=== PATIENT | male | born 1965 | race Two or more races ===

== ENCOUNTER 2024-08-29 13:34 | Inpatient (IN) | payer MEDICAID ==
[~2024-08-29] VITALS: Ht 188 cm; Wt 125.5 kg
[2024-08-29 14:34] LABS: BASOPHILS % (AUTO) 0.3 % (0.0-2.0); EOSINOPHILS % (AUTO) 1.6 % (1.0-6.0); HEMATOCRIT 40.7 % (41-53); LYMPHOCYTES # (AUTO) 1.4 K/uL (1.0-4.8); LYMPHOCYTES % (AUTO) 15.2 % (22.0-44.0); MEAN CORPUSCULAR HEMOGLOBIN 28.3 pg (26.0-34.0); MEAN CORPUSCULAR HGB CONC 34.4 G/dL (31.0-37.0); MEAN CORPUSCULAR VOLUME 82 fL (80-100); MONOCYTES # (AUTO) 0.9 K/uL (0.1-1.0); MONOCYTES % (AUTO) 9.8 % (2.0-9.0); NEUTROPHILS # (AUTO) 6.8 K/uL (1.8-7.7); NEUTROPHILS % (AUTO) 73.1 % (40.0-70.0); PLATELET COUNT (AUTO) 281 K/uL (150-450); RED BLOOD CELL COUNT(AUTO) 4.96 MIL/uL (4.50-5.90); RED CELL DISTRIBUTION WIDTH 12.7 % (11.5-14.5); WHITE BLOOD COUNT (AUTO) 9.3 K/uL (4.5-11.0)
[2024-08-29 14:39] LABS: ANION GAP 7 mmol/L (8-16); CALCIUM, TOTAL 8.8 mg/dL (8.8-10.5); CARBON DIOXIDE 29 mmol/L (22-29); CHLORIDE 100 mmol/L (98-107); CREATININE 0.96 mg/dL (0.60-1.30); GLOMERULAR FILTR. RATE CALC > 60 mL/min (>60); GLUCOSE,RANDOM 143 mg/dL (70-110); POTASSIUM 3.8 mmol/L (3.5-5.1); SODIUM SERUM 136 mmol/L (136-145); UREA NITROGEN, BLOOD 18 mg/dL (7-18)
[2024-08-29] MEDS ORDERED: 0.9% SODIUM CHLORIDE 10 ML SYRINGE IVP PRN (15:45)
[2024-08-29] MEDS: SODIUM CHLORIDE 0.9% 500 ML IV ONE (15:55)
[2024-08-29] MEDS: VANCOMYCIN HCL 1.5 GM in DEXTROSE 5%-WATER 250 ML IV ONE (16:12)
[2024-08-29 16:13] LABS: PROTHROMBIN TIME 80.2 SEC (9.4-11.6)
[2024-08-29 16:14] LABS: TROPONIN I-HIGH SENSITIVITY 8 ng/L (<76)
[2024-08-29 16:15] LABS: LACTIC ACID 1.1 mmol/L (0.4-2.0)
[2024-08-29 16:30] LABS: B-TYPE NATRIURETIC PEPTIDE 10 pg/mL (0-100)
[2024-08-29] MEDS ORDERED: MORPHINE SULFATE 2 MG/ML SYRINGE IVP PRN (16:30)
[2024-08-29] MEDS ORDERED: BISACODYL 10 MG RECTAL RECTAL SUPPOSITORY PR PRN (16:30)
[2024-08-29] MEDS ORDERED: ONDANSETRON HCL 4 MG/2 ML VIAL IVP PRN (16:30)
[2024-08-29] MEDS ORDERED: ZOLPIDEM TARTRATE 5 MG TABLET PO PRN (16:30)
[2024-08-29] MEDS ORDERED: HYDROCODONE/ACETAMINOPHEN 5-325 MG TABLET PO PRN (16:30)
[2024-08-29] MEDS ORDERED: MAGNESIUM HYDROXIDE SUSPENSION 30 ML UDCUP PO PRN (16:30)
[2024-08-29] MEDS ORDERED: DEXTROSE 50%-WATER 25 GM/50 ML SYRINGE IVP PRN (16:30)
[2024-08-29] MEDS ORDERED: ACETAMINOPHEN 325 MG TABLET PO PRN (16:30)
[2024-08-29] MEDS ORDERED: METO50 PO (16:43)
[2024-08-29] MEDS ORDERED: AMLO10TA55 PO (16:43)
[2024-08-29] MEDS ORDERED: METF-446 PO (16:43)
[2024-08-29] MEDS ORDERED: TAMS0.4C94 PO (16:43)
[2024-08-29] MEDS ORDERED: INSU3INS3 SQ (16:43)
[2024-08-29] MEDS ORDERED: LISI20TA24 PO (16:43)
[2024-08-29] MEDS ORDERED: ATOR40TA71 PO (16:43)
[2024-08-29] MEDS ORDERED: EMPA10TA3 PO (16:43)
[2024-08-29] MEDS: PIPERACILLIN/TAZO 3.375 GM/D5W 50 ML IV ONE (16:52)
[2024-08-29 19:03] LABS: PROTHROMBIN TIME 11.1 SEC (9.4-11.6)
[2024-08-29 19:04] LABS: ALANINE AMINOTRANSFERASE 23 U/L (12-78); ALBUMIN 3.4 g/dL (3.4-5.0); ALKALINE PHOSPHATASE 81 U/L (46-116); ANION GAP 10 mmol/L (8-16); ASPARTATE AMINOTRANSFERASE 19 U/L (15-37); BILIRUBIN,TOTAL 0.8 mg/dL (0.1-1.0); CARBON DIOXIDE 29 mmol/L (22-29); CHLORIDE 97 mmol/L (98-107); CREATININE 1.02 mg/dL (0.60-1.30); GLOMERULAR FILTR. RATE CALC > 60 mL/min (>60); GLUCOSE,RANDOM 170 mg/dL (70-110); POTASSIUM 3.9 mmol/L (3.5-5.1); SODIUM SERUM 136 mmol/L (136-145); TOTAL PROTEIN, SERUM 7.6 g/dL (6.4-8.2); UREA NITROGEN, BLOOD 17 mg/dL (7-18)
[2024-08-29] MEDS: DOCUSATE SODIUM 100 MG CAPSULE PO SCH (21:00)
[2024-08-29 21:39] VITALS: BP 141/90; PULSE 91; RESP 20; TEMP 97.9; O2SAT 98
[2024-08-29] MEDS: INSULIN LISPRO 100 UNITS/ML SQ PRN (22:19)
[2024-08-29] MEDS ORDERED: SODIUM CHLORIDE 0.9% 500 ML IV ONE (23:51)
[2024-08-29] MEDS: PIPERACILLIN/TAZO 3.375 GM/D5W 50 ML IV SCH (23:54)
[2024-08-30] MEDS ORDERED: HEPARIN SODIUM,PORCINE 5,000 UNITS/ML VIAL SQ SCH
[2024-08-30] MEDS: VANCOMYCIN 1GM/WATER(PEG/NADA) 200 ML IV SCH (00:51)
[2024-08-30 04:38] VITALS: BP 123/57; PULSE 88; RESP 18; TEMP 98.9; O2SAT 98
[2024-08-30 06:36] LABS: GLUCOMETER DEV NAME(LOC) 6S.1D; GLUCOSE,POINT OF CARE 255 MG/DL (70-110)
[2024-08-30 07:38] VITALS: BP 118/70; PULSE 84; RESP 18; TEMP 98.4; O2SAT 98
[2024-08-30 07:48] LABS: BASOPHILS % (AUTO) 0.4 % (0.0-2.0); HEMATOCRIT 40.9 % (41-53); HEMOGLOBIN 14.1 g/dL (13.5-17.5); LYMPHOCYTES # (AUTO) 1.2 K/uL (1.0-4.8); LYMPHOCYTES % (AUTO) 14.4 % (22.0-44.0); MEAN CORPUSCULAR HEMOGLOBIN 28.3 pg (26.0-34.0); MEAN CORPUSCULAR HGB CONC 34.6 G/dL (31.0-37.0); MEAN CORPUSCULAR VOLUME 82 fL (80-100); MONOCYTES # (AUTO) 0.7 K/uL (0.1-1.0); MONOCYTES % (AUTO) 8.2 % (2.0-9.0); NEUTROPHILS # (AUTO) 6.2 K/uL (1.8-7.7); PLATELET COUNT (AUTO) 299 K/uL (150-450); RED BLOOD CELL COUNT(AUTO) 4.99 MIL/uL (4.50-5.90); RED CELL DISTRIBUTION WIDTH 12.8 % (11.5-14.5); WHITE BLOOD COUNT (AUTO) 8.2 K/uL (4.5-11.0)
[2024-08-30 07:58] LABS: ANION GAP 9 mmol/L (8-16); CALCIUM, TOTAL 8.7 mg/dL (8.8-10.5); CARBON DIOXIDE 27 mmol/L (22-29); CHLORIDE 100 mmol/L (98-107); CREATININE 1.02 mg/dL (0.60-1.30); GLOMERULAR FILTR. RATE CALC > 60 mL/min (>60); GLUCOSE,RANDOM 150 mg/dL (70-110); POTASSIUM 3.9 mmol/L (3.5-5.1); SODIUM SERUM 136 mmol/L (136-145); UREA NITROGEN, BLOOD 17 mg/dL (7-18)
[2024-08-30] MEDS: EMPAGLIFLOZIN 10 MG TABLET PO SCH (09:00)
[2024-08-30] MEDS: AmLODIPine BESYLATE 10 MG TABLET PO SCH (11:58)
[2024-08-30] MEDS: PANTOPRAZOLE SODIUM 40 MG DR TABLET PO SCH (11:59)
[2024-08-30] MEDS: lisinopriL 20 MG TABLET PO SCH (12:00)
[2024-08-30] MEDS: METOPROLOL TARTRATE 50 MG TABLET PO SCH (12:00)
[2024-08-30 12:50] LABS: APPEARANCE,URINE CLEAR (CLEAR); BILIRUBIN,URINE NEGATIVE (NEGATIVE); COLOR,URINE LIGHT YELLOW (YELLOW); GLUCOSE, URINE (UA) >=1000 mg/dL (NEGATIVE); KETONES,URINE NEGATIVE (NEGATIVE); LEUKOCYTE ESTERASE ,URINE NEGATIVE (NEGATIVE); NITRATE,URINE NEGATIVE (NEGATIVE); OCCULT BLOOD,URINE NEGATIVE (NEGATIVE); PH,URINE 6.5 (5.0-8.0); PROTEIN,URINE NEGATIVE (NEGATIVE); SPECIFIC GRAVITIY, URINE 1.016 (1.003-1.030); UROBILINOGEN,URINE <=1.0 mg/dL (<=1.0)
[2024-08-30 12:54] LABS: BACTERIA,URINE None Seen /HPF (None Seen); RBC,URINE None Seen /HPF (0-2); WBC,URINE None Seen /HPF (0-5)
[2024-08-30] MEDS ORDERED: GADOTERATE MEGLUMINE 10 MMOL/20 ML VIAL IVP ONE (15:07)
[2024-08-30 17:26] VITALS: BP 121/62; PULSE 78; RESP 18; TEMP 98; O2SAT 99
[2024-08-30 17:31] LABS: GLUCOMETER DEV NAME(LOC) 6S.1D; GLUCOSE,POINT OF CARE 165 MG/DL (70-110)
[2024-08-30 19:20] VITALS: BP 125/73; PULSE 73; RESP 18; TEMP 98.2; O2SAT 99
[2024-08-31 04:10] VITALS: BP 122/68; PULSE 82; RESP 19; TEMP 97.7; O2SAT 97
[2024-08-31 05:56] LABS: GLUCOMETER DEV NAME(LOC) 6S.1D; GLUCOSE,POINT OF CARE 115 MG/DL (70-110)
[2024-08-31 07:06] LABS: BASOPHILS % (AUTO) 0.5 % (0.0-2.0); HEMATOCRIT 45.2 % (41-53); HEMOGLOBIN 15.3 g/dL (13.5-17.5); LYMPHOCYTES # (AUTO) 1.5 K/uL (1.0-4.8); LYMPHOCYTES % (AUTO) 17.8 % (22.0-44.0); MEAN CORPUSCULAR HEMOGLOBIN 27.9 pg (26.0-34.0); MEAN CORPUSCULAR HGB CONC 33.9 G/dL (31.0-37.0); MEAN CORPUSCULAR VOLUME 82 fL (80-100); MONOCYTES # (AUTO) 0.6 K/uL (0.1-1.0); MONOCYTES % (AUTO) 7.1 % (2.0-9.0); NEUTROPHILS % (AUTO) 72.6 % (40.0-70.0); PLATELET COUNT (AUTO) 329 K/uL (150-450); RED BLOOD CELL COUNT(AUTO) 5.49 MIL/uL (4.50-5.90); RED CELL DISTRIBUTION WIDTH 12.9 % (11.5-14.5); WHITE BLOOD COUNT (AUTO) 8.2 K/uL (4.5-11.0)
[2024-08-31 07:16] LABS: GLUCOMETER DEV NAME(LOC) 6S.2; GLUCOSE,POINT OF CARE 116 MG/DL (70-110)
[2024-08-31 07:22] LABS: ANION GAP 3 mmol/L (8-16); CALCIUM, TOTAL 9.2 mg/dL (8.8-10.5); CARBON DIOXIDE 29 mmol/L (22-29); CHLORIDE 100 mmol/L (98-107); CREATININE 1.12 mg/dL (0.60-1.30); GLOMERULAR FILTR. RATE CALC > 60 mL/min (>60); GLUCOSE,RANDOM 125 mg/dL (70-110); POTASSIUM 3.8 mmol/L (3.5-5.1); SODIUM SERUM 132 mmol/L (136-145); UREA NITROGEN, BLOOD 18 mg/dL (7-18)
[2024-08-31] MEDS ORDERED: SODIUM CHLORIDE 0.9% 1,000 ML ONE (08:39)
[2024-08-31] MEDS ORDERED: GADOTERATE MEGLUMINE 10 MMOL/20 ML VIAL IVP ONE (09:14)
[2024-08-31 15:11] VITALS: BP 118/63; PULSE 71; RESP 19; TEMP 98; O2SAT 99
[2024-08-31 17:36] LABS: GLUCOMETER DEV NAME(LOC) 6N.2B; GLUCOSE,POINT OF CARE 166 MG/DL (70-110)
[2024-08-31] MEDS ORDERED: PIPERACILLIN/TAZO 3.375 GM/D5W 50 ML IV SCH (19:15)
[2024-08-31] MEDS: PIPERACILLIN/TAZO 3.375 GM/D5W 50 ML IV SCH (20:10)
[2024-08-31 20:30] VITALS: BP 139/78; PULSE 77; RESP 20; TEMP 97.3; O2SAT 98
[2024-08-31 22:11] LABS: GLUCOMETER DEV NAME(LOC) 6N.2B; GLUCOSE,POINT OF CARE 209 MG/DL (70-110)
[2024-08-31] MEDS: VANCOMYCIN 1GM/WATER(PEG/NADA) 200 ML IV SCH (23:19)
[2024-09-01 04:47] VITALS: BP 143/90; PULSE 77; RESP 18; TEMP 98.2; O2SAT 95
[2024-09-01 06:20] LABS: GLUCOMETER DEV NAME(LOC) 5S.1D; GLUCOSE,POINT OF CARE 158 MG/DL (70-110)
[2024-09-01 06:43] LABS: BASOPHILS % (AUTO) 2.7 % (0.0-2.0); EOSINOPHILS % (AUTO) 2.6 % (1.0-6.0); HEMOGLOBIN 14.9 g/dL (13.5-17.5); LYMPHOCYTES # (AUTO) 1.2 K/uL (1.0-4.8); LYMPHOCYTES % (AUTO) 14.5 % (22.0-44.0); MEAN CORPUSCULAR HGB CONC 33.9 G/dL (31.0-37.0); MEAN CORPUSCULAR VOLUME 83 fL (80-100); MONOCYTES # (AUTO) 0.7 K/uL (0.1-1.0); MONOCYTES % (AUTO) 8.1 % (2.0-9.0); NEUTROPHILS # (AUTO) 5.8 K/uL (1.8-7.7); NEUTROPHILS % (AUTO) 72.1 % (40.0-70.0); PLATELET COUNT (AUTO) 340 K/uL (150-450); RED BLOOD CELL COUNT(AUTO) 5.31 MIL/uL (4.50-5.90); RED CELL DISTRIBUTION WIDTH 12.8 % (11.5-14.5); WHITE BLOOD COUNT (AUTO) 8.1 K/uL (4.5-11.0)
[2024-09-01 06:46] LABS: GLUCOMETER DEV NAME(LOC) 5S.1D; GLUCOSE,POINT OF CARE 139 MG/DL (70-110)
[2024-09-01 06:48] LABS: ANION GAP 10 mmol/L (8-16); CALCIUM, TOTAL 9.3 mg/dL (8.8-10.5); CARBON DIOXIDE 26 mmol/L (22-29); CHLORIDE 103 mmol/L (98-107); CREATININE 1.02 mg/dL (0.60-1.30); GLOMERULAR FILTR. RATE CALC > 60 mL/min (>60); GLUCOSE,RANDOM 143 mg/dL (70-110); POTASSIUM 3.9 mmol/L (3.5-5.1); SODIUM SERUM 139 mmol/L (136-145); UREA NITROGEN, BLOOD 25 mg/dL (7-18)
[2024-09-01 07:48] VITALS: BP 147/78; PULSE 72; RESP 18; TEMP 98.2; O2SAT 97
[2024-09-01 15:52] VITALS: BP 147/106; PULSE 79; RESP 18; TEMP 98.2; O2SAT 97
[2024-09-01 17:46] LABS: GLUCOMETER DEV NAME(LOC) 4E.2; GLUCOSE,POINT OF CARE 123 MG/DL (70-110)
[2024-09-01 20:04] VITALS: BP 141/87; PULSE 84; RESP 19; TEMP 98; O2SAT 98
[2024-09-02 04:45] VITALS: BP 140/80; PULSE 61; RESP 18; TEMP 97.9; O2SAT 98
[2024-09-02] MEDS ORDERED: PROPOFOL 1% ISO-OSM 1000 MG/100 ML BOTTLE ONE (04:51)
[2024-09-02] MEDS ORDERED: FentaNYL CITRATE PF 100 MCG/2 ML VIAL ONE (04:51)
[2024-09-02] MEDS ORDERED: MIDAZOLAM HCL 2 MG/2 ML VIAL ONE (04:51)
[2024-09-02 06:31] LABS: GLUCOMETER DEV NAME(LOC) 6N.1B; GLUCOSE,POINT OF CARE 219 MG/DL (70-110)
[2024-09-02 07:35] LABS: ANION GAP 10 mmol/L (8-16); CALCIUM, TOTAL 8.8 mg/dL (8.8-10.5); CARBON DIOXIDE 25 mmol/L (22-29); CHLORIDE 106 mmol/L (98-107); CREATININE 1.09 mg/dL (0.60-1.30); GLOMERULAR FILTR. RATE CALC > 60 mL/min (>60); GLUCOSE,RANDOM 142 mg/dL (70-110); POTASSIUM 3.9 mmol/L (3.5-5.1); SODIUM SERUM 141 mmol/L (136-145); UREA NITROGEN, BLOOD 26 mg/dL (7-18)
[2024-09-02] MEDS ORDERED: RINGERS SOLUTION,LACTATED 1,000 ML IV ONE (08:47)
[2024-09-02] MEDS: CHLORHEXIDINE GLUCONATE 2% TOWELETTE [2'S/6'S] TP ONE (09:48)
[2024-09-02] MEDS: ETHYL ALCOHOL 62% ANTISEPTIC NASAL SANITIZER 0.6 ML AMPUL NASAL ONE (10:00)
[2024-09-02 10:33] VITALS: BP 132/87; PULSE 63; RESP 20; TEMP 97.8; O2SAT 99
[2024-09-02] MEDS ORDERED: FentaNYL CITRATE PF 100 MCG/2 ML VIAL IVP PRN (11:15)
[2024-09-02] MEDS ORDERED: HYDROmorphone HCL 2 MG/ML SYRINGE IVP PRN (11:15)
[2024-09-02] MEDS ORDERED: MEPERIDINE-PF 25 MG/ML VIAL IVP PRN (11:15)
[2024-09-02] MEDS: RINGERS SOLUTION,LACTATED 1,000 ML IV ONE (11:38)
[2024-09-02] MEDS: LIDOCAINE/PF 2% 5 ML VIAL ONE (12:25)
[2024-09-02] MEDS: BUPIVACAINE HCL/PF 0.5% 30 ML VIAL ONE (12:25)
[2024-09-02 12:31] LABS: GLUCOMETER DEV NAME(LOC) SDS.; GLUCOSE,POINT OF CARE 112 MG/DL (70-110)
[2024-09-02] MEDS ORDERED: POVIDONE-IODINE 10% 15 ML SOLUTION UD ONE (12:31)
[2024-09-02 15:33] VITALS: BP 129/81; PULSE 65; RESP 18; TEMP 97.5; O2SAT 98
[2024-09-02 17:25] LABS: GLUCOMETER DEV NAME(LOC) 4E.2; GLUCOSE,POINT OF CARE 73 MG/DL (70-110)
[2024-09-02 17:26] LABS: GLUCOMETER DEV NAME(LOC) 4E.2; GLUCOSE,POINT OF CARE 215 MG/DL (70-110)
[2024-09-02 17:26] LABS: GLUCOMETER DEV NAME(LOC) 4E.2; GLUCOSE,POINT OF CARE 133 MG/DL (70-110)
[2024-09-02 20:52] VITALS: BP 138/81; PULSE 74; RESP 20; TEMP 97.9; O2SAT 98
[2024-09-02 22:51] LABS: GLUCOMETER DEV NAME(LOC) 5S.1D; GLUCOSE,POINT OF CARE 240 MG/DL (70-110)
[2024-09-03] MEDS ORDERED: SODIUM CHLORIDE 0.9% 250 ML IV ONE (01:07)
[2024-09-03 04:57] VITALS: BP 147/74; PULSE 63; RESP 20; TEMP 97.9; O2SAT 98
[2024-09-03 06:05] LABS: GLUCOMETER DEV NAME(LOC) 5S.1D; GLUCOSE,POINT OF CARE 164 MG/DL (70-110)
[2024-09-03 07:00] LABS: ANION GAP 10 mmol/L (8-16); CALCIUM, TOTAL 8.8 mg/dL (8.8-10.5); CARBON DIOXIDE 25 mmol/L (22-29); CHLORIDE 107 mmol/L (98-107); GLOMERULAR FILTR. RATE CALC > 60 mL/min (>60); GLUCOSE,RANDOM 150 mg/dL (70-110); POTASSIUM 3.7 mmol/L (3.5-5.1); SODIUM SERUM 142 mmol/L (136-145); UREA NITROGEN, BLOOD 24 mg/dL (7-18)
[2024-09-03 07:29] VITALS: BP 140/76; PULSE 68; RESP 20; TEMP 98.1; O2SAT 98
[2024-09-03] MEDS: OXYGEN THERAPY IH SCH (08:29)
[2024-09-03 11:40] LABS: GLUCOMETER DEV NAME(LOC) 4E.2; GLUCOSE,POINT OF CARE 183 MG/DL (70-110)
[2024-09-03 15:29] VITALS: BP 144/82; PULSE 64; RESP 18; TEMP 97.9; O2SAT 97
[2024-09-03 17:25] LABS: GLUCOMETER DEV NAME(LOC) 4E.2; GLUCOSE,POINT OF CARE 171 MG/DL (70-110)
[2024-09-03 20:08] VITALS: BP 145/84; PULSE 70; RESP 18; TEMP 98.1; O2SAT 96
[2024-09-04 03:46] LABS: GLUCOMETER DEV NAME(LOC) 5S.1D; GLUCOSE,POINT OF CARE 172 MG/DL (70-110)
[2024-09-04 05:15] VITALS: BP 147/84; PULSE 58; RESP 20; TEMP 97.9; O2SAT 95
[2024-09-04 06:55] LABS: GLUCOMETER DEV NAME(LOC) 5S.1D; GLUCOSE,POINT OF CARE 144 MG/DL (70-110)
[2024-09-04 07:11] LABS: ANION GAP 9 mmol/L (8-16); CALCIUM, TOTAL 8.9 mg/dL (8.8-10.5); CARBON DIOXIDE 26 mmol/L (22-29); CHLORIDE 107 mmol/L (98-107); CREATININE 1.08 mg/dL (0.60-1.30); GLOMERULAR FILTR. RATE CALC > 60 mL/min (>60); GLUCOSE,RANDOM 140 mg/dL (70-110); SODIUM SERUM 142 mmol/L (136-145); UREA NITROGEN, BLOOD 25 mg/dL (7-18)
[2024-09-04 08:08] VITALS: BP 147/92; PULSE 72; RESP 20; TEMP 97.7; O2SAT 99
[2024-09-04 16:24] VITALS: BP 147/75; PULSE 61; RESP 20; TEMP 98.1; O2SAT 99
[2024-09-04 17:00] LABS: GLUCOMETER DEV NAME(LOC) 6N.1B; GLUCOSE,POINT OF CARE 153 MG/DL (70-110)
[2024-09-04 19:21] LABS: GLUCOMETER DEV NAME(LOC) 5S.1D; GLUCOSE,POINT OF CARE 164 MG/DL (70-110)
[2024-09-04 19:27] VITALS: BP 127/82; PULSE 69; RESP 18; TEMP 97.9; O2SAT 97
[2024-09-04] MEDS: VANCOMYCIN HCL 1.25 GM in DEXTROSE 5%-WATER 250 ML IV SCH (20:37)
[2024-09-04 22:36] LABS: GLUCOMETER DEV NAME(LOC) 5S.1D; GLUCOSE,POINT OF CARE 162 MG/DL (70-110)
[2024-09-05 04:53] VITALS: BP 118/81; PULSE 63; RESP 18; TEMP 97.7; O2SAT 98
[2024-09-05 08:00] VITALS: BP 142/84; PULSE 76; RESP 19; TEMP 98; O2SAT 98
[2024-09-05 08:04] LABS: ANION GAP 10 mmol/L (8-16); CALCIUM, TOTAL 9.6 mg/dL (8.8-10.5); CARBON DIOXIDE 27 mmol/L (22-29); CHLORIDE 102 mmol/L (98-107); CREATININE 1.09 mg/dL (0.60-1.30); GLOMERULAR FILTR. RATE CALC > 60 mL/min (>60); GLUCOSE,RANDOM 176 mg/dL (70-110); POTASSIUM 4.2 mmol/L (3.5-5.1); SODIUM SERUM 139 mmol/L (136-145); UREA NITROGEN, BLOOD 25 mg/dL (7-18)
[2024-09-05 12:05] LABS: GLUCOMETER DEV NAME(LOC) 4E.2; GLUCOSE,POINT OF CARE 168 MG/DL (70-110)
[2024-09-05 17:00] LABS: GLUCOMETER DEV NAME(LOC) 4E.2; GLUCOSE,POINT OF CARE 216 MG/DL (70-110)
[2024-09-05 20:00] VITALS: BP 141/81; PULSE 69; RESP 18; TEMP 98.6; O2SAT 98
[2024-09-06 04:44] VITALS: BP 116/83; PULSE 55; RESP 18; TEMP 98.1; O2SAT 96
[2024-09-06 06:56] LABS: ANION GAP 11 mmol/L (8-16); CALCIUM, TOTAL 9.4 mg/dL (8.8-10.5); CARBON DIOXIDE 25 mmol/L (22-29); CHLORIDE 104 mmol/L (98-107); CREATININE 1.07 mg/dL (0.60-1.30); GLOMERULAR FILTR. RATE CALC > 60 mL/min (>60); GLUCOSE,RANDOM 169 mg/dL (70-110); POTASSIUM 4.1 mmol/L (3.5-5.1); SODIUM SERUM 140 mmol/L (136-145); UREA NITROGEN, BLOOD 28 mg/dL (7-18)
[2024-09-06 07:30] LABS: GLUCOMETER DEV NAME(LOC) 6N.1B; GLUCOSE,POINT OF CARE 166 MG/DL (70-110)
[2024-09-06 07:35] LABS: GLUCOMETER DEV NAME(LOC) 5S.1D; GLUCOSE,POINT OF CARE 185 MG/DL (70-110)
[2024-09-06 07:35] LABS: GLUCOMETER DEV NAME(LOC) 4E.2; GLUCOSE,POINT OF CARE 236 MG/DL (70-110)
[2024-09-06 07:56] VITALS: BP 143/89; PULSE 72; RESP 20; TEMP 98.2; O2SAT 100
[2024-09-06] MEDS ORDERED: CEFA2PIG IV (13:07)
[2024-09-06] MEDS: MetroNIDAZOLE 500 MG TABLET PO SCH (15:19)
[2024-09-06] MEDS: CEFEPIME HCL 2 GM in DEXTROSE 5%-WATER 50 ML IV SCH (15:19)
[2024-09-06 15:41] VITALS: BP 145/91; PULSE 61; RESP 18; TEMP 97.9; O2SAT 99
[2024-09-06 20:05] VITALS: BP 137/83; PULSE 64; RESP 20; TEMP 97.9; O2SAT 98
[2024-09-06] MEDS: CeFAZolin 2 GM/DEXTROSE 50 ML IV SCH (22:24)
[2024-09-07 04:01] LABS: GLUCOMETER DEV NAME(LOC) 4E.2; GLUCOSE,POINT OF CARE 164 MG/DL (70-110)
[2024-09-07 05:55] VITALS: BP 143/92; PULSE 77; RESP 18; TEMP 97.5; O2SAT 100
[2024-09-07 06:06] LABS: GLUCOMETER DEV NAME(LOC) 6N.1B; GLUCOSE,POINT OF CARE 162 MG/DL (70-110)
[2024-09-07 06:06] LABS: GLUCOMETER DEV NAME(LOC) 6N.1B; GLUCOSE,POINT OF CARE 229 MG/DL (70-110)
[2024-09-07 06:50] LABS: BASOPHILS % (AUTO) 0.5 % (0.0-2.0); EOSINOPHILS % (AUTO) 2.2 % (1.0-6.0); HEMATOCRIT 43.3 % (41-53); LYMPHOCYTES # (AUTO) 2.1 K/uL (1.0-4.8); LYMPHOCYTES % (AUTO) 22.4 % (22.0-44.0); MEAN CORPUSCULAR HEMOGLOBIN 28.3 pg (26.0-34.0); MEAN CORPUSCULAR HGB CONC 34.6 G/dL (31.0-37.0); MEAN CORPUSCULAR VOLUME 82 fL (80-100); MONOCYTES # (AUTO) 0.8 K/uL (0.1-1.0); MONOCYTES % (AUTO) 8.1 % (2.0-9.0); NEUTROPHILS # (AUTO) 6.2 K/uL (1.8-7.7); NEUTROPHILS % (AUTO) 66.8 % (40.0-70.0); PLATELET COUNT (AUTO) 293 K/uL (150-450); WHITE BLOOD COUNT (AUTO) 9.3 K/uL (4.5-11.0)
[2024-09-07 07:07] LABS: ALANINE AMINOTRANSFERASE 24 U/L (12-78); ALBUMIN 3.6 g/dL (3.4-5.0); ALKALINE PHOSPHATASE 69 U/L (46-116); ANION GAP 8 mmol/L (8-16); ASPARTATE AMINOTRANSFERASE 14 U/L (15-37); BILIRUBIN,TOTAL 0.6 mg/dL (0.1-1.0); C-REACTIVE PROTEIN QUANT 0.93 mg/dL (0.00-0.30); CALCIUM, TOTAL 9.1 mg/dL (8.8-10.5); CARBON DIOXIDE 27 mmol/L (22-29); CHLORIDE 104 mmol/L (98-107); CREATININE 1.05 mg/dL (0.60-1.30); GLOMERULAR FILTR. RATE CALC > 60 mL/min (>60); GLUCOSE,RANDOM 152 mg/dL (70-110); POTASSIUM 4.1 mmol/L (3.5-5.1); SODIUM SERUM 139 mmol/L (136-145); TOTAL PROTEIN, SERUM 7.8 g/dL (6.4-8.2); UREA NITROGEN, BLOOD 25 mg/dL (7-18)
[2024-09-07 09:25] LABS: GLUCOMETER DEV NAME(LOC) 5S.1D; GLUCOSE,POINT OF CARE 167 MG/DL (70-110)
[2024-09-07 09:35] VITALS: BP 124/89; PULSE 76; RESP 18; TEMP 97.7; O2SAT 100
[2024-09-07 15:04] VITALS: BP 136/84; PULSE 68; RESP 18; TEMP 98.2; O2SAT 99
[2024-09-07 18:06] LABS: GLUCOMETER DEV NAME(LOC) 6N.1B; GLUCOSE,POINT OF CARE 182 MG/DL (70-110)
[2024-09-07 19:06] LABS: GLUCOMETER DEV NAME(LOC) 5S.1D; GLUCOSE,POINT OF CARE 111 MG/DL (70-110)
[2024-09-07 19:55] VITALS: BP 129/54; PULSE 60; RESP 18; TEMP 98.1; O2SAT 98
[2024-09-07 21:30] LABS: GLUCOMETER DEV NAME(LOC) 5S.1D; GLUCOSE,POINT OF CARE 206 MG/DL (70-110)
[2024-09-08 05:39] VITALS: BP 129/81; PULSE 67; RESP 18; TEMP 97.9; O2SAT 95
[2024-09-08 08:08] VITALS: BP 120/80; PULSE 72; RESP 18; TEMP 97.7; O2SAT 18
[2024-09-08 09:15] LABS: GLUCOMETER DEV NAME(LOC) 5S.1D; GLUCOSE,POINT OF CARE 144 MG/DL (70-110)
[2024-09-08 15:10] VITALS: BP 117/76; PULSE 68; RESP 18; TEMP 97.9; O2SAT 98
[2024-09-08 19:56] VITALS: BP 124/73; PULSE 75; RESP 18; TEMP 97.9; O2SAT 97
[2024-09-08 23:40] LABS: GLUCOMETER DEV NAME(LOC) 5S.1D; GLUCOSE,POINT OF CARE 195 MG/DL (70-110)
[2024-09-08 23:40] LABS: GLUCOMETER DEV NAME(LOC) 5S.1D; GLUCOSE,POINT OF CARE 106 MG/DL (70-110)
[2024-09-09 05:11] LABS: GLUCOMETER DEV NAME(LOC) 6N.1B; GLUCOSE,POINT OF CARE 158 MG/DL (70-110)
[2024-09-09 06:00] VITALS: BP 126/81; PULSE 75; RESP 18; TEMP 97.6; O2SAT 98
[2024-09-09 07:00] LABS: GLUCOMETER DEV NAME(LOC) 6N.1B; GLUCOSE,POINT OF CARE 143 MG/DL (70-110)
[2024-09-09 07:58] VITALS: BP 162/93; PULSE 84; RESP 19; TEMP 98.4; O2SAT 96
[2024-09-09] MEDS: POVIDONE-IODINE 10% 15 ML SOLUTION UD TP ONE (11:15)
[2024-09-09] MEDS ORDERED: ACET-2247 PO (13:12)
[2024-09-09] MEDS ORDERED: LISI-894 PO (13:16)
[2024-09-09 16:06] LABS: GLUCOMETER DEV NAME(LOC) 6N.1B; GLUCOSE,POINT OF CARE 190 MG/DL (70-110)
== END 2024-09-09 14:30 | disposition home health service (06) | DRG 320 ==
LOC: EMS 13:38 → EDH 16:26 → 6N 21:30 → 4E 08-31 18:47
PROVIDERS: ADMIT Internal Medicine; ATTEND Internal Medicine
PROC: 05HY33Z Insertion of Infusion Device into Upper Vein, Percutaneous Approach (ICD-10-PCS; 2024-08-30)
PROC: B54NZZA Ultrasonography of Left Upper Extremity Veins, Guidance (ICD-10-PCS; 2024-08-30)
PROC: 0QBR0ZZ Excision of Left Toe Phalanx, Open Approach (ICD-10-PCS; principal; 2024-09-02 12:00)
DX: E11.69 Type 2 diabetes mellitus with other specified complication (principal); M86.8X7 Other osteomyelitis, ankle and foot; E11.621 Type 2 diabetes mellitus with foot ulcer; I50.9 Heart failure, unspecified; I11.0 Hypertensive heart disease with heart failure; S91.302A Unspecified open wound, left foot, initial encounter; L97.528 Non-pressure chronic ulcer of other part of left foot with other specified severity; L02.612 Cutaneous abscess of left foot; B95.61 Methicillin susceptible Staphylococcus aureus infection as the cause of diseases classified elsewhere; E66.01 Morbid (severe) obesity due to excess calories; E78.5 Hyperlipidemia, unspecified; R79.1 Abnormal coagulation profile; X58.XXXA Exposure to other specified factors, initial encounter; F17.200 Nicotine dependence, unspecified, uncomplicated; I73.9 Peripheral vascular disease, unspecified; F17.210 Nicotine dependence, cigarettes, uncomplicated; Z79.01 Long term (current) use of anticoagulants; Z79.899 Other long term (current) drug therapy; Z68.35 Body mass index [BMI] 35.0-35.9, adult; Y93.89 Activity, other specified; Y92.89 Other specified places as the place of occurrence of the external cause; Y99.8 Other external cause status
CPT/HCPCS: 36245; 36569; 71045; 73723; 76937; 80048; 80053; 80202; 81001; 82962; 83605; 83880; 84145; 84484; 85025; 85610; 85730; 86140; 87040; 87070; 87075; 87081; 87186; 87205; 93005; 93925; 96365; 96367; 97166; 97535; 99285; G0378; J0690; J0692; J2250; J2543; J2704; J3010; J3490; J7030; J7040; J7050; J7060; J7120; 36415-L1; 36415-TC